=== PATIENT | female | born 1975 | race Caucasian/White ===

== ENCOUNTER 2021-12-07 11:12 | Emergency (ER) | payer OTHER ==
[~2021-12-07] VITALS: Ht 152.4 cm; Wt 57.6 kg
[2021-12-07] MEDS ORDERED: NORFLEX100MG PO (14:39)
[2021-12-07] MEDS ORDERED: KETO10TA2 PO (14:39)
== END 2021-12-07 14:40 | disposition home or self-care (01) ==
LOC: ER 11:12
DX: M94.0 Chondrocostal junction syndrome [Tietze] (principal)